=== PATIENT | male | born 1950 | race Caucasian/White ===

== ENCOUNTER 2017-04-21 03:51 | Inpatient (IN) | payer OTHER ==
--- NOTE | ~2017-04-21 | CN ---
Consultation Report [facility] [address] [place]. [address] NAME: VINICIO COREAS II : 46 STATUS : ADM IN [facility]#: [id number] AGE: 66 ADM/REG DATE : 04/21/17 MR#: [id number] REPORT SERV DATE: 04/22/17 DICTATED BY: THELMA HERNANDEZ DATE: 04/22/17 REPORT STATUS : Draft TRANSCRIBED BY: MODL DATE: 04/22/17 PULMONARY CONSULTATION DATE OF CONSULTATION: 04/22/2017 REASON FOR CONSULTATION: Wheezing. HISTORY OF PRESENT ILLNESS: Mr. Coreas is a 66-year-old white male, former smoker, without prior pulmonary diagnosis, who was admitted secondary to volume overload. He is complaining of a five to seven day history of shortness of breath and wheezing while supine as well as a cough productive of clear sputum, so Pulmonary was consulted for assistance. He denies chest tightness or srinath chest pain, nasal symptoms, GERD symptoms, sore throat, fever, chills, night sweats, or hemoptysis. He describes audible wheezing that resolved when he sits up. He states he has had a similar episode several years ago that resolved on its own after a few days. He is unaware of triggers or exacerbating factors for his symptoms. He was on no pulmonary medications prior to admission, but states he was on "an inhaler" for a short period of time post spine surgery several years ago. He did not find a medication beneficial at that time, but it is notable that he was not complaining of any pulmonary symptoms then. He complains of daytime sleepiness that he attributes this to sedating medications. He is unaware of snoring and denies srinath symptoms of obstructive sleep apnea. PAST MEDICAL HISTORY: 1. Former smoker. 2. Coronary artery disease. 3. Mixed cardiomyopathy with most recent ejection fraction of 20%. 4. Prior DVT-on chronic Coumadin therapy. 5. Hypertension. 6. Hyperlipidemia. 7. Diabetes mellitus. 8. Peripheral neuropathy secondary to diabetes. 9. AICD. 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 11.Respiratory arrest post angiogram thought to be secondary to aspiration during procedure. 12.Bilateral ankle surgery. 13.Previous right shoulder surgery x3. 14.Previous left shoulder surgery x4. FAMILY HISTORY: Brother had asthma. SOCIAL HISTORY: Mr. Coreas smoked one pack of cigarettes per day for 40 years and quit in 2007. He denies past/present drug use, chewing tobacco, or ethanol intake. He previously Consultation Report [address] [place]. 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 He is and has two children. MEDICATIONS: Outpatient and inpatient medications were reviewed and are as documented in the record. ALLERGIES: ALPRAZOLAM, MORPHINE, CODEINE, HYDROCODONE, LATEX, AND MEPERIDINE. REVIEW OF SYSTEMS: A 10-point system review was conducted and is remarkable for the symptoms as described in the history of present illness. PHYSICAL EXAMINATION: VITAL SIGNS: Temperature 98.0 degrees, heart rate 97, blood pressure 122/56, respiratory rate 18 to 23, and oxygen saturation 96% on room air. GENERAL: Pleasant white male. Alert, oriented, no apparent distress. HEENT: Normocephalic. Atraumatic. There is no scleral icterus. The conjunctivae are clear. NECK: Supple. No lymphadenopathy or JVD was noted. LUNGS: Good air movement. Good effort. The lungs are clear to auscultation bilaterally. HEART: Regular rate and rhythm with no ectopy noted. ABDOMEN: Soft, nontender, nondistended. There are normal bowel sounds in all four quadrants. BILATERAL EXTREMITIES: There is no clubbing, cyanosis, or edema. There is significant atrophy of the muscles in the lower extremities. NEUROLOGICAL: A very limited exam was conducted and was remarkable for lower extremity weakness. SKIN: No rashes were noted. LABORATORY RESULTS: Labs were reviewed and are as documented in the record. Notable labs include a white blood cell count of 8.3. The arterial blood gas done this admission revealed a pH of 7.49, pCO2 of 35 and pO2 of 93 on supplemental oxygen at 32%. IMAGING: The chest x-ray done this admission revealed borderline cardiomegaly. No infiltrates, effusions, or nodules were noted. ASSESSMENT AND PLAN: Mr. Coreas is a 66-year-old white male, former smoker, with a history of cough and dyspnea as well as wheezing while supine as described above. Recommend bedside spirogram to evaluate for possible chronic obstructive pulmonary disease. His wheezing, dyspnea, and cough may be related to his volume status. Treatment is ongoing per Cardiology. Consultation Report [address] [place]. [address] NAME: VINICIO COREAS II : 46 STATUS : ADM IN PAT#: [id number] AGE: 66 ADM/REG DATE : 04/21/17 MR#: [id number] REPORT SERV DATE: 04/22/17 DICTATED BY: THELMA HERNANDEZ DATE: 04/22/17 REPORT STATUS : Draft TRANSCRIBED BY: CHAPIN DATE: 04/22/17 He denies nasal congestion, but his symptoms may be related to postnasal drip. Recommend weaning his supplemental oxygen off if possible as this may be contributing to his wheezing. We will give him a trial of steroid nasal sprays. Additionally, we will treat him empirically for gastroesophageal reflux disease as his wheezing occurs only when supine. He does have daytime hypersomnolence as described above that he did not get srinath symptoms of obstructive sleep apnea. We will check an overnight oximetry while he is here as an inpatient to better evaluate. An outpatient polysomnogram will be recommended if indicated after review of his overnight oximetry. He does have a long history of smoking as described above. He needs an outpatient lung cancer screening and CT scan of the chest. Outpatient pulmonary followup has been arranged for him after discharge and his outpatient lung cancer screening CT scan of the chest can be arranged at that appointment. After his bedside spirogram has been done, he will be started on bronchodilators to assess for possible response. If his spirogram indicates that he has any evidence of chronic obstructive pulmonary disease, then outpatient maintenance medications will be arranged for him. Thank you very much for this consultation. ASAD/CHAPIN Thelma Hernandez M.D. / [id number] CC: Steve Bueno M.D. Stiven Love M.D.
--- NOTE | ~2017-04-21 | PUL ---
[address] [place]. [address] NAME: VINICIO COREAS II : 46 STATUS : DIS IN PAT#: [id number] AGE: 66 ADM/REG DATE : 04/21/17 MR#: [id number] REPORT SERV DATE: 04/24/17 DICTATED BY: THELMA BASILIO DATE: 04/23/17 REPORT STATUS : Draft TRANSCRIBED BY: MODL DATE: 04/23/17 PULMONARY FUNCTION TEST START DATE OF TESTIN04/22/2017. END DATE OF TESTIN04/23/2017. COMMENTS: Testing conducted with the patient breathing room air. RESULTS: Total valid sampling time 6 hours and 18 minutes. Total time with an oxygen saturation less than 88%, 30 minutes and 30 seconds. Oxygen desaturation event index 40.3. IMPRESSION: There was significant desaturation during this study conducted while the patient was breathing room air. The oxygen desaturation event index was elevated suggestive of possible obstructive sleep apnea. Recommend formal sleep study to confirm. PS/MODL Thelma Basilio M.D. / [id number] CC: Jaime Nettles M.D.
--- NOTE | ~2017-04-21 | PUL ---
[address] [place]. [address] NAME: VINICIO COREAS II : 46 STATUS : ADM IN PAT#: [id number] AGE: 66 ADM/REG DATE : 04/21/17 MR#: [id number] REPORT SERV DATE: 04/23/17 DICTATED BY: THELMA BASILIO DATE: 04/23/17 REPORT STATUS : Draft TRANSCRIBED BY: MODL DATE: 04/23/17 PULMONARY FUNCTION TEST DATE OF TESTIN04/22/2017. DIAGNOSIS: Dyspnea. RESULTS: 1. FEV1 of 1.78 L (48% of predicted). 2. FVC 2.62 L (53% of predicted). 3. FEV1/FVC ratio 68%. IMPRESSION: There is severe obstructive ventilatory impairment. The forced vital capacity is reduced suggestive of restriction. PS/MODL Thelma Basilio M.D. / [id number] CC: Jaime Nettles M.D.
--- NOTE | ~2017-04-21 | HP ---
History And Physical [address] [address] NAME: VINICIO COREAS II : 46 STATUS : ADM IN [facility]#: [id number] AGE: 66 ADM/REG DATE : 04/21/17 MR#: [id number] REPORT SERV DATE: 04/21/17 DICTATED BY: STEVE KING DATE: 04/21/17 REPORT STATUS : Draft TRANSCRIBED BY: MODL DATE: 04/21/17 DATE OF ADMISSION: 04/21/2017 [facility] PHYSICIAN: Dr. Steve Bueno. CHIEF COMPLAINT: Dyspnea. HISTORY OF PRESENT ILLNESS: Mr. Coreas is a 66-year-old man with a history of mixed cardiomyopathy and chronic systolic congestive heart failure. He was just seen a month or two ago by Dr. Bueno, was doing well. He reports mild increased shortness of breath over the past three to four days with some increasing wheezing. He had no chest pain or tightness. He had acute worsening of shortness of breath last night, felt like he was drowning, and came to the emergency room. He had no palpitations or lightheadedness. He had no swelling. He did report that he thought his urine output had decreased. REVIEW OF SYSTEMS: As per the history of present illness. Ten other systems are negative. PAST MEDICAL HISTORY: 1. 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 2. Mixed cardiomyopathy with LVEF of 20%. 3. History of DVT, on Coumadin. 4. History of ICD placement. 5. Hypertension. 6. Hypercholesterolemia. 7. Diabetes. 8. Post-polio syndrome. 9. Diabetic neuropathy. FAMILY HISTORY: Noncontributory. SOCIAL HISTORY: The patient is . Lives with his . No tobacco reported. ALLERGIES: CODEINE, LATEX, ALPRAZOLAM, MORPHINE, HYDROCODONE, MEPERIDINE. MEDICATIONS: Artificial tears, aspirin 81 daily, Coreg 12.5 mg p.o. b.i.d., Keflex as directed, Tylenol, Lasix 20 daily, Neurontin, Toujeo insulin, Lidoderm, lisinopril 2.5 daily, Mevacor 20 daily, Bactroban, nitroglycerin, Prilosec, Endocet, oxycodone, potassium, Janumet, meclizine, testosterone, Jantoven. PHYSICAL EXAMINATION: VITAL SIGNS: Heart rate 80, blood pressure 91/65. GENERAL: The patient is a pleasant, healthy-appearing white male, in no apparent distress. HEENT: Conjunctivae are anicteric, no xanthelasma, lips without cyanosis. NECK: Supple, normal JVP, carotids +2 without bruit. History And Physical [address] [address] NAME: VINICIO COREAS II : 46 STATUS : ADM IN PAT#: [id number] AGE: 66 ADM/REG DATE : 04/21/17 MR#: [id number] REPORT SERV DATE: 04/21/17 DICTATED BY: STEVE KING DATE: 04/21/17 REPORT STATUS : Draft TRANSCRIBED BY: CHAPIN DATE: 04/21/17 LUNGS: Clear to auscultation bilaterally, no wheezes, rales or rhonchi. CARDIOVASCULAR: Regular rate and rhythm. Normal S1 and S2. No gallop or murmur. ABDOMEN: Soft, nontender, nondistended, with normal bowel sounds. No hepatomegaly. EXTREMITIES: No clubbing, cyanosis, or edema. There is atrophy in the bilateral calf muscles. NEURO/PSYCH: Alert and oriented to person, place and time. No obvious neurologic deficits. Mood and affect normal. DATA: Creatinine is 0.95. BNP of 661. Troponin 0.4. INR 4.6. Chest x-ray with no congestive symptoms, mild cardiomegaly. EKG with sinus rhythm, first degree AV block, poor R-wave progression. IMPRESSION: 1. Cceha-we-dizgojw systolic congestive heart failure. 2. Cardiomyopathy. 3. Neuropathy. 4. Diabetes. 5. Elevated troponin with no anginal symptoms. RECOMMENDATIONS: Mr. Coreas presents with dyspnea. He may be a little bit of volume overloaded, although it is minimal based on his exam and chest x-ray. I am going to diurese him over the next 24 hours. Recheck an echocardiogram since it has been a couple of years since evaluation and draw some serial enzymes to see if the troponins are rising. I think this is unlikely be coronary mediated. If he is doing better, he could probably go home tomorrow. I have discussed this with he and his . WO/MODL Steve King M.D., Ph.D, F.A.C.C. / [id number] CC: Jaime Nettles M.D.
[2017-04-21 03:47] LABS: BASOPHILS 0.2 %; BASOPHILS ABSOLUTE 0.02 10/3/uL (0.0-0.16); EOSINOPHILS 1.4 %; EOSINOPHILS ABSOLUTE 0.13 10/3/uL (0.0-0.53); HEMATOCRIT 41.5 % (40.0-51.0); HEMOGLOBIN 13.8 g/dL (13.6-17.8); IMMATURE GRANULOCYTES 0.7 %; IMMATURE GRANULOCYTES ABSOLUTE 0.07 10/3/uL (0.0-0.11); LYMPHOCYTES 25.6 %; LYMPHOCYTES ABSOLUTE 2.44 10/3/uL (0.67-4.30); MEAN CORPUS HGB CONC 33.3 g/dL (32.0-36.0); MEAN CORPUSCULAR HEMOGLOB 29.1 pg (26.0-34.0); MEAN CORPUSCULAR VOLUME 87.4 fL (80-100); MONOCYTES 14.4 %; MONOCYTES ABSOLUTE 1.37 10/3/uL (0.21-1.20); NEUTROPHILS 57.7 %; NEUTROPHILS ABSOLUTE 5.49 10/3/uL (2.02-8.40); PLATELET COUNT 161 10/3/uL (150-400); RBC DISTRIBUTION WIDTH 14.6 % (12.0-16.0); RED CELL COUNT 4.75 10/6/uL (4.7-6.1); WHITE BLOOD CELLS 9.5 10/3/uL (4.5-10.5)
[2017-04-21 03:49] LABS: MANUAL DIFF NO %
[~2017-04-21 03:51] MED LIST: ALEVE220 MG PO; ASA5GR PO; ASAB PO; C5 PO; COREG12 PO; COUMADIN7.5 MG PO; IMDUR30 PO; JANUMET XR 50-1 EAC1 PO; JANUMET1 TA1 PO; JANUVIA100 MG PO; KLOR-CON M2020 MEQ PO; L20 PO; L40 PO; LANTUS SC; LANTUSCART SC; LIDODERM T; LIDODERM TOP; LYRICA100 MG PO; LYRICA75 PO; MEVACOR PO; NAP500 PO; NATURE'S OPH; NEUR600 PO; NITROSTAT0.4 MG SL; POT GLUCONAT595 M1 OR; POTASSIUM GLUCONATE PO; PRILO PO; PRIN2.5 PO; PRIN5 PO; STARLIX120 PO; T PO; TOUJEO SC; TYLENOL PM PO; ULTRAM50 PO; VITAMIN B PO; [UNRECOGNIZED DRUG - REMARK] SC
[2017-04-21 03:57] LABS: INTERNATIONAL NORMAL RATI 4.6 UNITS (-); PARTIAL THROMBO TIME 58.5 SEC (22.5-37.2)
[2017-04-21 04:00] LABS: PROTIME (NOT ORD) 43.3 SEC (12.0-14.5)
[2017-04-21 04:04] LABS: ALBUMIN 3.4 G/DL (3.5-5.0); CHLORIDE, SERUM 105 MMOL/L (96-112); CREATININE 0.95 MG/DL (0.70-1.30); DIRECT BILIRUBIN 0.2 MG/DL (0.0-0.4); GFR AFRICAN AMERICAN 95 ML/MIN (>=60); GFR NON AFRICAN AMERICAN 82 ML/MIN (>=60); INDIRECT BILIRUBIN(NOT ORDER) 0.3 MG/DL (0.1-0.9); POTASSIUM, SERUM 4.3 MMOL/L (3.5-5.3); SGOT(AST) 14 U/L (5-40); SGPT(ALT) 16 U/L (5-65); SODIUM, SERUM 139 MMOL/L (135-148); TOTAL BILIRUBIN 0.5 MG/DL (0-1.2); TOTAL PROTEIN 7.1 G/DL (6.0-8.5)
[2017-04-21 04:06] LABS: ALKALINE PHOSPHATASE 76 U/L (45-117); BUN (BLOOD UREA NITROGEN) 13 MG/DL (6-23); CALCIUM, SERUM 8.7 MG/DL (8.5-10.4); CO2 (CARBON DIOXIDE) 27 MMOL/L (24-34); GLUCOSE, SERUM 123 MG/DL (60-99)
[2017-04-21 04:07] LABS: CHEST PAIN PROFILE TAT 0 Hrs 24 Mins
[2017-04-21] MEDS ORDERED: NITROSTAT0.4 MG SL (05:21)
[2017-04-21] MEDS ORDERED: JANTOVEN5 MG PO (05:21)
[2017-04-21] MEDS ORDERED: PRILO PO (05:22)
[2017-04-21] MEDS ORDERED: KLOR-CON M2020 MEQ PO (05:22)
[2017-04-21] MEDS ORDERED: MEVACOR PO (05:23)
[2017-04-21] MEDS ORDERED: JANUMET XR 50-1 EAC1 PO (05:23)
[2017-04-21] MEDS ORDERED: ASAB PO (05:23)
[2017-04-21] MEDS ORDERED: TOUJEO SC (05:24)
[2017-04-21] MEDS ORDERED: PRIN2.5 PO (05:25)
[2017-04-21] MEDS ORDERED: LIDODERM TOP (05:25)
[2017-04-21] MEDS ORDERED: L20 PO (05:26)
[2017-04-21] MEDS ORDERED: TYLENOL PM PO (05:27)
[2017-04-21] MEDS ORDERED: COREG12 PO (05:27)
[2017-04-21] MEDS ORDERED: NEUR600 PO (05:28)
[2017-04-21] MEDS ORDERED: ENDOCET1 TA1 PO (05:30)
[2017-04-21] MEDS ORDERED: K500 PO (05:30)
[2017-04-21] MEDS ORDERED: MECLIZINE PO (07:38)
[2017-04-21] MEDS ORDERED: TEARS PURE OPH (07:38)
[2017-04-21] MEDS ORDERED: BACTROINT TOP (07:39)
[2017-04-21] MEDS ORDERED: TESTOSTERONE IM (07:39)
[2017-04-21] MEDS ORDERED: PERCOCET 7.5/321 TAB PO (07:41)
[2017-04-21 08:56] LABS: TROPONIN I 0.41 NG/ML (<0.05)
[2017-04-21 11:09] LABS: CPK 30 U/L (0-200)
[2017-04-21 11:11] LABS: CK-MB 2.4 NG/ML
[2017-04-21 16:54] LABS: CK-MB 2.3 NG/ML; CPK 37 U/L (0-200); TROPONIN I 0.41 NG/ML (<0.05)
[2017-04-21 22:18] LABS: CPK 33 U/L (0-200)
[2017-04-21 22:20] LABS: CK-MB 2.2 NG/ML; TROPONIN I 0.37 NG/ML (<0.05)
[2017-04-22 05:47] LABS: BASOPHILS 0.1 %; BASOPHILS ABSOLUTE 0.01 10/3/uL (0.0-0.16); EOSINOPHILS 1.7 %; EOSINOPHILS ABSOLUTE 0.14 10/3/uL (0.0-0.53); HEMATOCRIT 41.5 % (40.0-51.0); HEMOGLOBIN 13.2 g/dL (13.6-17.8); IMMATURE GRANULOCYTES 0.7 %; IMMATURE GRANULOCYTES ABSOLUTE 0.06 10/3/uL (0.0-0.11); LYMPHOCYTES 28.3 %; LYMPHOCYTES ABSOLUTE 2.34 10/3/uL (0.67-4.30); MEAN CORPUS HGB CONC 31.8 g/dL (32.0-36.0); MEAN CORPUSCULAR HEMOGLOB 27.8 pg (26.0-34.0); MEAN CORPUSCULAR VOLUME 87.4 fL (80-100); MONOCYTES 14.2 %; MONOCYTES ABSOLUTE 1.17 10/3/uL (0.21-1.20); NEUTROPHILS ABSOLUTE 4.54 10/3/uL (2.02-8.40); PLATELET COUNT 155 10/3/uL (150-400); RBC DISTRIBUTION WIDTH 14.7 % (12.0-16.0); RED CELL COUNT 4.75 10/6/uL (4.7-6.1); WHITE BLOOD CELLS 8.3 10/3/uL (4.5-10.5)
[2017-04-22 05:48] LABS: MANUAL DIFF NO %
[2017-04-22 05:59] LABS: ALBUMIN 3.4 G/DL (3.5-5.0); BUN (BLOOD UREA NITROGEN) 16 MG/DL (6-23); CALCIUM, SERUM 8.6 MG/DL (8.5-10.4); CHLORIDE, SERUM 101 MMOL/L (96-112); CO2 (CARBON DIOXIDE) 29 MMOL/L (24-34); CREATININE 0.78 MG/DL (0.70-1.30); GFR AFRICAN AMERICAN 107 ML/MIN (>=60); GFR NON AFRICAN AMERICAN 93 ML/MIN (>=60); GLUCOSE, SERUM 123 MG/DL (60-99); PHOSPHORUS, SERUM 2.9 MG/DL (2.5-4.5); POTASSIUM, SERUM 3.9 MMOL/L (3.5-5.3); SODIUM, SERUM 135 MMOL/L (135-148)
[2017-04-22 08:45] LABS: ALLENS TEST Pos; CARBOXYHEMOGLOBIN 0.6 % (0-3); DEVICE NC; HEMOBLOGIN CONTENT 14.7 G/DL (14-18); INSTRUMENT SERIAL # 11843; METHEMOGLOBIN 0.5 % (0-3); O2 CONTENT 19.9 VOL% (18-24); PCO2 (CO2 TENSION) 35 MMHG (35-45); PO2 (O2 TENSION) 93 MMHG (79-93); SAMPLE Arterial; pH 7.49 (7.37-7.43)
[2017-04-22 09:52] LABS: INTERNATIONAL NORMAL RATI 3.8 UNITS (-)
[2017-04-22 09:56] LABS: PROTIME (NOT ORD) 36.8 SEC (12.0-14.5)
[2017-04-23 07:10] LABS: BASOPHILS 0.1 %; BASOPHILS ABSOLUTE 0.01 10/3/uL (0.0-0.16); EOSINOPHILS 1.7 %; EOSINOPHILS ABSOLUTE 0.15 10/3/uL (0.0-0.53); HEMATOCRIT 42.7 % (40.0-51.0); HEMOGLOBIN 13.7 g/dL (13.6-17.8); IMMATURE GRANULOCYTES 0.7 %; IMMATURE GRANULOCYTES ABSOLUTE 0.06 10/3/uL (0.0-0.11); LYMPHOCYTES ABSOLUTE 2.67 10/3/uL (0.67-4.30); MEAN CORPUS HGB CONC 32.1 g/dL (32.0-36.0); MEAN CORPUSCULAR VOLUME 87.3 fL (80-100); MEAN PLATELET VOLUME 10.1 fL (9.2-13.0); MONOCYTES 15.3 %; MONOCYTES ABSOLUTE 1.32 10/3/uL (0.21-1.20); NEUTROPHILS 51.2 %; PLATELET COUNT 169 10/3/uL (150-400); RBC DISTRIBUTION WIDTH 14.5 % (12.0-16.0); RED CELL COUNT 4.89 10/6/uL (4.7-6.1); WHITE BLOOD CELLS 8.6 10/3/uL (4.5-10.5)
[2017-04-23 07:12] LABS: MANUAL DIFF NO %
[2017-04-23 07:14] LABS: INTERNATIONAL NORMAL RATI 2.3 UNITS (-)
[2017-04-23 07:15] LABS: PROTIME (NOT ORD) 24.7 SEC (12.0-14.5)
[2017-04-23 07:26] LABS: BUN (BLOOD UREA NITROGEN) 14 MG/DL (6-23); CALCIUM, SERUM 8.8 MG/DL (8.5-10.4); CHLORIDE, SERUM 98 MMOL/L (96-112); CO2 (CARBON DIOXIDE) 30 MMOL/L (24-34); CREATININE 0.79 MG/DL (0.70-1.30); GFR AFRICAN AMERICAN 107 ML/MIN (>=60); GFR NON AFRICAN AMERICAN 92 ML/MIN (>=60); GLUCOSE, SERUM 155 MG/DL (60-99); SODIUM, SERUM 135 MMOL/L (135-148)
[2017-04-23] MEDS ORDERED: FLONASE NAS (10:51)
[2017-04-23] MEDS ORDERED: ANOROELLIPTA INH (10:58)
== END 2017-04-23 12:22 | disposition home or self-care (01) | DRG 292 ==
LOC: ER 03:51 → 2SO 06:25
PROVIDERS: Emergency Medicine; Internal Medicine Cardiovascular Disease; Nurse Practitioner Family
DX: I50.23 Acute on chronic systolic (congestive) heart failure (principal); I42.0 Dilated cardiomyopathy; E11.42 Type 2 diabetes mellitus with diabetic polyneuropathy; I44.0 Atrioventricular block, first degree; I25.10 Atherosclerotic heart disease of native coronary artery without angina pectoris; H26.9 Unspecified cataract; E78.00 Pure hypercholesterolemia, unspecified; K21.9 Gastro-esophageal reflux disease without esophagitis; J44.9 Chronic obstructive pulmonary disease, unspecified; R09.82 Postnasal drip; E78.5 Hyperlipidemia, unspecified; G14 Postpolio syndrome; Z99.3 Dependence on wheelchair; I25.2 Old myocardial infarction; Z86.718 Personal history of other venous thrombosis and embolism; Z95.5 Presence of coronary angioplasty implant and graft; Z79.02 Long term (current) use of antithrombotics/antiplatelets; Z98.890 Other specified postprocedural states; Z79.4 Long term (current) use of insulin; Z87.891 Personal history of nicotine dependence; Z95.810 Presence of automatic (implantable) cardiac defibrillator; Z88.5 Allergy status to narcotic agent; Z91.040 Latex allergy status; Z88.8 Allergy status to other drugs, medicaments and biological substances
CPT/HCPCS: 36600; 71010; 80048; 80069; 80076; 82550; 82553; 82805; 82962; 83690; 83735; 83880; 84484; 85025; 85610; 85730; 93005; 93306; 94010; 94640; 94762; 96374; 99285; A9270-GY; J1940